=== PATIENT | female | born 1960 | race Caucasian/White ===

== ENCOUNTER 2023-08-11 08:57 | Outpatient (AMB) | payer OTHER, SELFPAY ==
--- NOTE | 2023-08-11 09:00 | A.OFFPC_ITS ---
Vital Signs 08/11/23 09:14 Height 5 ft 3.58 in Weight 100 lb 6 oz BMI 17.5 BP 132/60 Blood Pressure Location Lt brachial Position Sitting Respiration 16 Pulse 117 H Pulse Source Pulse Oximeter Temp 98.3 F Temp Source Oral Intake Visit Reasons: est care Intake Note: New patient visit. Stopped taking Pravastatin due to stomach pain. Pain stopped a week after stopping medication. Interested in trying Ezetimibe. Also wants to talk about taking Meloxicam. Trust And Estates Attorney Required: No Allergies hydrocortisone Allergy (Unknown, Verified 08/11/23 09:03) Headache pravastatin Allergy (Unknown, Verified 08/11/23 09:10) Stomach Upset prednisone Allergy (Unknown, Verified 08/11/23 09:03) bloating Tobacco use date assessed: 08/11/23 Fall risk assessment: 1 Fall in past year Last assessed Fall Risk: 08/11/23 Dental Screening Dental Screen Date: 08/11/23 Did you have a dental visit in the last 12 months?: No Did you have a dental problem in the last 6 months where you did not have access to dental care?: No Was dental information given to patient?: Patient has dentist HPI HPI Comments History of Present Illness Details The patient is a 62 year old female with a past medical history of hypothyroid, headaches, chronic pain presenting for follow up CV: Did not tolerate pravastatin. Was having GI upset with the medication. Would like to try zetia as her sister has done well with the medication Endocrine: On levothyroxine 112mcg daily Chronic pain: neck, low back. stable on oxycodone. Declines colonoscopy. Still has her cologuard at her house [facility] Medical History (Updated 08/11/23 @ 09:49 by Jessica Newell MD) Arthritis Underweight Insomnia Hypothyroidism Headache Surgical History (Updated 08/11/23 @ 09:02 by Lavonne Hu CMA) History of tonsillectomy Family History (Updated 08/11/23 @ 09:19 by Lavonne Hu CMA) Father Diabetes Thyroid disorder Social History (Updated 08/11/23 @ 09:12 by Lavonne Hu CMA) Housing: House Patient Tobacco Use Status: Current everyday Tobacco user Tobacco use type: Cigarette Cigarettes Per Day: 5 Years Smoked: 40 e-Cigarette/Vaping Use: Never Used service: No Current occupational status: retired Cognitive needs: No Hearing needs: No Vision needs: No Questionnaire PHQ-9 Over the last 2 weeks, how often have you been bothered by any of the following problems? 1. Little interest or pleasure in doing things: not at all 2. Feeling down, depressed, or hopeless: not at all 3. Trouble falling or staying asleep, or sleeping too much: not at all 4. Feeling tired or having little energy: not at all 5. Poor appetite or overeating: not at all 6. Feeling bad about yourself - or that you are a failure or have let yourself or your family down: not at all 7. Trouble concentrating on things, such as reading the newspaper or watching television: not at all 8. Moving or speaking so slowly that other people could have noticed. Or the opposite - being so fidgety or restless that you have been moving around a lot more than usual: not at all 9. Thoughts that you would be better off or of hurting yourself in some way: not at all Total score: 0 Depression Screening Interpretation: Negative (neg) Depression Screening Done: Yes 66227 - PHQ-9 Billing: Yes Source: Developed by Drs. Octavio Soto, Sherry Daley, Gonsalo Harkins and colleagues, with an educational kathryn from [employer]. Thrive Questionnaire Date Thrive assessed: 08/11/23 I am a: Patient What is your living situation today?: I have a steady place to live Within the past 12 months, did the food you bought not last and you didn't have the money to get more?: Never true Within the past 12 months, did you worry whether your food would run out before you got money to buy more?: Never true Do you have trouble paying for medicines?: No Do you have trouble getting transportation to medical appointments?: No Do you have trouble paying your heating and electricity bill?: No Do you have trouble taking care of your child, family member or friend?: No Do you have trouble with day-to-day activities such as bathing, preparing meals, shopping, managing finances, etc.?: No Are you currently unemployed and looking for a job?: No Are you interested in more education?: No Please select the resources that you would like help with: None Currently or been in a relationship where the following occur: no concerns reported THRIVE Score: 0 AUDIT C Alcohol Use Questionnaire (AUDIT-C) 1. How often do you have a drink containing alcohol?: Never 3. How often do you have six or more drinks on one occasion?: Never Total Score: 0 MONICA-7 AMB Questionnaire MONICA-7 Date MONICA - 7 assessed: 08/11/23 Feeling nervous, anxious, or on edge: 0 = Not at all Not being able to stop or control worryin = Not at all Worrying too much about different things: 0 = Not at all Trouble relaxin = Not at all Being so restless that it is hard to sit still: 0 = Not at all Becoming easily annoyed or irritable: 0 = Not at all Feeling afraid as if something awful might happen: 0 = Not at all Total MONICA-7 score (0-4 normal; 5-9 mild; 10-14 moderate; 15-21 severe): 0 Source: Developed by Drs. Octavio Soto, Sherry Daley, Gonsalo Harkins and colleagues, with an educational kathryn from [employer]. MONICA-7 Assessment Billing MONICA-7 Assessment Tool: MONICA-7 Assessment 30111 Review of Systems Const Details: ROS CONSTITUTIONAL: Denies weight loss, fever and chills. HEENT: Denies changes in vision and hearing. RESPIRATORY: Denies SOB and cough. CV: Denies palpitations and CP GI: Denies abdominal pain, nausea, vomiting and diarrhea. : Denies dysuria and urinary frequency. MSK: Denies new myalgia and joint pain. SKIN: Denies rash and pruritus. NEUROLOGICAL: Denies headache PSYCHIATRIC: Denies recent changes in mood. Physical exam (Primary Care) Vital Signs: Last Vital Signs Temp 98.3 F 08/11/23 09:14 Pulse 117 H 08/11/23 09:14 Resp 16 08/11/23 09:14 BP 132/60 08/11/23 09:14 PHYSICAL EXAM: GENERAL: Alert and oriented x 3. NAD EYES: EOMI. Anicteric. HENT: Moist mucous membranes. LUNGS: Clear to auscultation bilaterally. CARDIOVASCULAR: Regular rate and rhythm ABDOMEN: Soft, non-tender +bs EXTREMITIES: No edema. Non-tender. SKIN: No rashes or lesions. Warm. NEUROLOGIC: No focal neurological deficits. PSYCHIATRIC: Cooperative. Appropriate mood and affect BMI result Body Mass Index 17.5 Tobacco/Smoking Status: Tobacco use Status Tobacco use date assessed 08/11/23 08/11/23 09:15 Patient Tobacco Use Status Current everyday Tobacco 08/11/23 09:15 Tobacco use type Cigarette 08/11/23 09:15 e-Cigarette/Vaping Use Never Used 08/11/23 09:15 Depression Screening Interpretation: Negative (neg) Currently or been in a relationship where the following occur: no concerns reported Assessment and Plan Assessment & Plan (1) Chronic back pain: Comment: continue current medications. 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 continue PPI Code(s): M15.9 - Polyosteoarthritis, unspecified Qualifiers: Osteoarthritis type: primary Qualified Code(s): M15.9 - Polyosteoarthritis, unspecified (4) Headache: Code(s): R51.9 - Headache, unspecified Qualifiers: Headache chronicity pattern: episodic headache Intractability: not intractable Headache type: unspecified Qualified Code(s): R51.9 - Headache, unspecified (5) Hyperlipidemia: Code(s): E78.5 - Hyperlipidemia, unspecified Qualifiers: Hyperlipidemia type: mixed hyperlipidemia Qualified Code(s): E78.2 - Mixed hyperlipidemia Orders: Orders Basic Metabolic Panel Today E03.8 - Other specified hypothyroidism, E06.3 - Autoimmune thyroiditis, E78.5 - Hyperlipidemia, unspecified, R51.9 - Headache, unspecified TSH reflex Free T4 Today E03.8 - Other specified hypothyroidism, E06.3 - Autoimmune thyroiditis, E78.5 - Hyperlipidemia, unspecified, R51.9 - Headache, unspecified Lipid Panel Today E03.8 - Other specified hypothyroidism, E06.3 - Autoimmune thyroiditis, E78.5 - Hyperlipidemia, unspecified, R51.9 - Headache, unspecified Medications: New ezetimibe 10 mg PO DAILY 90 tabs 3RF meloxicam 7.5 mg PO DAILY 90 days 90 tabs 3RF Coding Level of Care Code Est Pt Level 4 (11068) Complex EM visit Add On G2211 Diagnoses Chronic back pain, unspecified back location, unspecified back pain laterality M54.9; G89.29 Back pain laterality: unspecified Back pain location: back pain in unspecified location 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
[2023-08-11 09:14] VITALS: BP 132/60; PULSE 117; RESP 16; TEMP 36.8; BMI 17.5
== END 2023-08-11 09:40 | disposition home or self-care (01) ==
PROVIDERS: Visit Provider Internal Medicine
DX: M54.9 Dorsalgia, unspecified (principal); G89.29 Other chronic pain; E03.8 Other specified hypothyroidism; E06.3 Autoimmune thyroiditis; M15.9 Polyosteoarthritis, unspecified; R51.9 Headache, unspecified; E78.2 Mixed hyperlipidemia
CPT/HCPCS: 99214; G2211

== ENCOUNTER 2023-08-11 09:43 | Outpatient (REF) | payer OTHER, SELFPAY ==
[2023-08-11 11:55] LABS: Anion Gap 13 (12-20); Blood Urea Nitrogen 16 mg/dL (9-16); Carbon Dioxide 27 mmol/L (22-29); Chloride 104 mmol/L (96-108); Cholesterol 253 mg/dL (<200); Estimated Glomerular Filt Rate > 60; Glucose Random 97 mg/dL (60-115); HDL Cholesterol 92 mg/dL (>40); LDL Cholesterol Calculated 137 mg/dL (<100); Potassium 3.9 mmol/L (3.3-5.1); Sodium 140 mmol/L (135-145); Triglycerides 123 mg/dL (<150)
[2023-08-11 12:14] LABS: TSH reflex Free T4 7.18 uIU/mL (0.32-4.0)
[2023-08-11 13:31] LABS: Free T4 (Free Thyroxine) 1.02 ng/dL (0.71-1.85)
== END 2023-08-11 09:44 | disposition home or self-care (01) ==
LOC: HO.WFDLDS 09:43
PROVIDERS: Visit Provider Internal Medicine
DX: R51.9 Headache, unspecified (principal); E03.8 Other specified hypothyroidism; E06.3 Autoimmune thyroiditis; E78.5 Hyperlipidemia, unspecified
CPT/HCPCS: 36415; 80048; 80061; 84439; 84443

== ENCOUNTER 2023-11-10 08:47 | Outpatient (AMB) | payer OTHER, SELFPAY ==
--- NOTE | 2023-11-10 08:53 | MHC.PC.OV ---
Vital Signs 11/10/23 08:56 Height 5 ft 3 in Weight 105 lb BMI 18.6 BP 161/69 H Blood Pressure Location Rt brachial Position Sitting Respiration 12 Pulse 74 Pulse Source Pulse Oximeter Pulse Oximetry (%) 99 Oxygen Delivery Method Room Air Intake Visit Reasons: 3 month F/U Intake Note: Patient is here to follow up for her thyroid. Pharmaceutical Compounding Supervisor Required: No Allergies hydrocortisone Allergy (Unknown, Verified 11/10/23 09:02) Headache pravastatin Allergy (Unknown, Verified 11/10/23 09:02) Stomach Upset prednisone Allergy (Unknown, Verified 11/10/23 09:02) bloating Tobacco use date assessed: 08/11/23 Fall risk assessment: 1 Fall in past year Last assessed Fall Risk: 11/10/23 Dental Screening Dental Screen Date: 08/11/23 HPI HPI Comments History of Present Illness Details The patient is a 62 year old female with a past medical history of hypothyroid, headaches, chronic pain presenting for follow up CV: Did not tolerate pravastatin. Was having GI upset with the medication. On zetria Endocrine: On levothyroxine 112mcg daily. Last TSH elevated. She would like to go up on the dose Chronic pain: neck, low back. stable on oxycodone. Reports very fatigued. Does not think she is depressed. Just less energy than usual. No LN, night sweats. Declines colonoscopy. ROS see HPI PHYSICAL EXAM: GENERAL: Alert and oriented x 3. NAD EYES: EOMI. Anicteric. HENT: Moist mucous membranes. No scleral icterus. No cervical lymphadenopathy. LUNGS: Clear to auscultation bilaterally. CARDIOVASCULAR: Regular rate and rhythm. No murmur. No JVD. ABDOMEN: Soft, non-tender +bs EXTREMITIES: No edema. Non-tender. SKIN: No rashes or lesions. Warm. NEUROLOGIC: No focal neurological deficits. CN II-XII grossly intact PSYCHIATRIC: Cooperative. Appropriate mood and affect [facility] Medical History (Updated 11/10/23 @ 09:27 by Jessica Newell MD) Arthritis Underweight Insomnia Hypothyroidism Headache Surgical History (Updated 08/11/23 @ 09:02 by Lavonne Hu CMA) History of tonsillectomy Family History (Updated 08/11/23 @ 09:19 by Lavonne Hu CMA) Father Diabetes Thyroid disorder Social History (Updated 08/11/23 @ 09:12 by KENYA Kapoor Housing: House Patient Tobacco Use Status: Current everyday Tobacco user Tobacco use type: Cigarette Cigarettes Per Day: 5 Years Smoked: 40 e-Cigarette/Vaping Use: Never Used service: No Current occupational status: retired Cognitive needs: No Hearing needs: No Vision needs: No Questionnaire Thrive Questionnaire Date Thrive assessed: 08/11/23 MONICA-7 AMB Questionnaire MONICA-7 Date MONICA - 7 assessed: 08/11/23 Source: Developed by Drs. Octavio Soto, Sherry Daley, Gonsalo Harkins and colleagues, with an educational kathryn from [employer]. Physical exam (Primary Care) Vital Signs: Last Vital Signs Pulse 74 11/10/23 08:56 Resp 12 11/10/23 08:56 BP 161/69 H 11/10/23 08:56 Pulse Ox 99 11/10/23 08:56 Oxygen Delivery Method Room Air 11/10/23 08:56 BMI result Body Mass Index 18.6 Tobacco/Smoking Status: Tobacco use Status Tobacco use date assessed 08/11/23 11/10/23 08:53 Patient Tobacco Use Status Current everyday Tobacco 11/10/23 08:53 Tobacco use type Cigarette 11/10/23 08:53 e-Cigarette/Vaping Use Never Used 11/10/23 08:53 Thrive Assessment: Date of Thrive Assessment Date Thrive assessed 08/11/23 11/10/23 08:53 Assessment and Plan Assessment & Plan (1) Osteoarthritis, multiple sites: Code(s): M15.9 - Polyosteoarthritis, unspecified Qualifiers: Osteoarthritis type: primary Qualified Code(s): M15.9 - Polyosteoarthritis, unspecified Plan: stable. continue current medications (2) Chronic back pain: Code(s): M54.9 - Dorsalgia, unspecified; G89.29 - Other chronic pain Qualifiers: Back pain location: back pain in unspecified location Back pain laterality: unspecified Qualified Code(s): M54.9 - Dorsalgia, unspecified; G89.29 - Other chronic pain Plan: Continue opioid meds. 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 Recheck TSH in 8 weeks (4) Hyperlipidemia: Code(s): E78.5 - Hyperlipidemia, unspecified Qualifiers: Hyperlipidemia type: mixed hyperlipidemia Qualified Code(s): E78.2 - Mixed hyperlipidemia Orders: Orders TSH reflex Free T4 Today E03.8 - Other specified hypothyroidism, E06.3 - Autoimmune thyroiditis, E78.2 - Mixed hyperlipidemia Lyme IgG/IgM w/reflex to WB Today E03.8 - Other specified hypothyroidism, E06.3 - Autoimmune thyroiditis, E78.2 - Mixed hyperlipidemia Lipid Panel Today E03.8 - Other specified hypothyroidism, E06.3 - Autoimmune thyroiditis, E78.2 - Mixed hyperlipidemia Comprehensive Met. Panel Today E03.8 - Other specified hypothyroidism, E06.3 - Autoimmune thyroiditis, E78.2 - Mixed hyperlipidemia Vitamin B12 and Folate Today E03.8 - Other specified hypothyroidism, E06.3 - Autoimmune thyroiditis, E78.2 - Mixed hyperlipidemia IRON PROFILE Today E03.8 - Other specified hypothyroidism, E06.3 - Autoimmune thyroiditis, E78.2 - Mixed hyperlipidemia Complete Blood Count Auto Diff Today E03.8 - Other specified hypothyroidism, E06.3 - Autoimmune thyroiditis, E78.2 - Mixed hyperlipidemia Medications: New levothyroxine 125 mcg PO DAILY 90 tabs 3RF bupropion HCl XL (Wellbutrin XL) 150 mg PO QAM 90 tabs 3RF Coding Level of Care Code Est Pt Level 4 (18149) Complex EM visit Add On G2211 Diagnoses Primary osteoarthritis involving multiple joints M15.9 Osteoarthritis type: primary Chronic back pain, unspecified back location, unspecified back pain laterality M54.9; G89.29 Back pain location: back pain in unspecified location Back pain laterality: unspecified 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
[2023-11-10 08:56] VITALS: BP 161/69; PULSE 74; RESP 12; O2SAT 99; BMI 18.6
== END 2023-11-10 09:28 | disposition home or self-care (01) ==
PROVIDERS: PCP Internal Medicine; Visit Provider Internal Medicine
DX: M15.9 Polyosteoarthritis, unspecified (principal); M54.9 Dorsalgia, unspecified; G89.29 Other chronic pain; E03.8 Other specified hypothyroidism; E06.3 Autoimmune thyroiditis; E78.2 Mixed hyperlipidemia
CPT/HCPCS: 99214; G2211

== ENCOUNTER → 2023-12-08 14:41 | Outpatient (AMB) | payer OTHER, SELFPAY ==
--- NOTE | 2023-12-08 14:36 | A.OFFPC_ITS ---
Intake Visit Reasons: phone f/up meds Intake Note: Patient reports she is following up regarding medication. Patient reports she did not start her medication because she looked up the side effects and did not like them. Patient wants to inform the provider herself. Narrative Writer Required: No Accompanied by: Self / Same As Patient Allergies hydrocortisone Allergy (Unknown, Verified 11/10/23 09:02) Headache pravastatin Allergy (Unknown, Verified 11/10/23 09:02) Stomach Upset prednisone Allergy (Unknown, Verified 11/10/23 09:02) bloating Tobacco use date assessed: 08/11/23 Dental Screening Dental Screen Date: 08/11/23 HPI HPI Comments History of Present Illness Details The patient is a 63 year old female with a past medical history of hypothyroid, headaches, chronic pain presenting for follow up. [employer] employed She had c/o ongoing fatigue at her last visit. Does not think she is depressed. Just less energy than usual. No LN, night sweats. She was placed on a trial of wellbutrin but she ended up being very hesitant to start. We did discuss this again today CV: Did not tolerate pravastatin. Was having GI upset with the medication. On zetia Endocrine: On levothyroxine daily Chronic pain: neck, low back. stable on oxycodone. Reports very fatigued. Does not think she is depressed. Just less energy than usual. No LN, night sweats. Declines colonoscopy. ROS see HPI PHYSICAL EXAM: Telehealth [facility] Medical History (Updated 12/11/23 @ 09:12 by Jessica Newell MD) Arthritis Underweight Insomnia Hypothyroidism Headache Surgical History (Updated 08/11/23 @ 09:02 by Lavonne Hu CMA) History of tonsillectomy Family History (Updated 08/11/23 @ 09:19 by Lavonne Hu CMA) Father Diabetes Thyroid disorder Social History (Updated 08/11/23 @ 09:12 by Lavonne Hu CMA) Housing: House Patient Tobacco Use Status: Current everyday Tobacco user Tobacco use type: Cigarette Cigarettes Per Day: 5 Years Smoked: 40 Packs per year/per ci.00 e-Cigarette/Vaping Use: Never Used service: No Current occupational status: retired Cognitive needs: No Hearing needs: No Vision needs: No Questionnaire Thrive Questionnaire Date Thrive assessed: 08/11/23 MONICA-7 AMB Questionnaire MONICA-7 Date MONICA - 7 assessed: 08/11/23 Source: Developed by Drs. Octavio Soto, Sherry Daley, Gonsalo Harkins and colleagues, with an educational kathryn from [employer]. Physical exam (Primary Care) Tobacco/Smoking Status: Tobacco use Status Tobacco use date assessed 08/11/23 12/08/23 14:39 Patient Tobacco Use Status Current everyday Tobacco 12/08/23 14:39 Tobacco use type Cigarette 12/08/23 14:39 e-Cigarette/Vaping Use Never Used 12/08/23 14:39 Thrive Assessment: Date of Thrive Assessment Date Thrive assessed 08/11/23 12/08/23 14:39 Telehealth Telehealth Telehealth Platform: Telephone Location of provider rendering services: practice address Location of patient: address on file Patient Identification confirmed using: Name, : Yes Telehealth method: voice only Patient verbally consented to treatment: Yes Patient verbally consented to billing insurance company: Yes Patient informed of any privacy concerns related to visit: Yes Minutes spent on Phone/Video with Pt.: 32 Assessment and Plan Assessment & Plan (1) Fatigue: Code(s): R53.83 - Other fatigue Qualifiers: Fatigue type: chronic, unspecified Qualified Code(s): R53.82 - Chronic fatigue, unspecified Plan: Discussed trial of wellbutrin for possible depression, fatigue, difficulty concentrating (2) Hypothyroidism: Code(s): E03.9 - Hypothyroidism, unspecified Qualifiers: Hypothyroidism type: due to Fransisco's thyroiditis Qualified Code(s): E03.8 - Other specified hypothyroidism; E06.3 - Autoimmune thyroiditis Plan: Levothyroxine increased at last visit as TSH still elevated. 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
== END ==
LOC: HO.HMCFM 14:41
PROVIDERS: PCP Internal Medicine; Visit Provider Internal Medicine
DX: R53.82 Chronic fatigue, unspecified (principal); E03.8 Other specified hypothyroidism; E06.3 Autoimmune thyroiditis

== ENCOUNTER 2024-02-23 08:28 | Outpatient (REF) | payer OTHER, SELFPAY ==
[2024-02-23 10:55] LABS: MANUAL DIFF FLAG NO
[2024-02-23 11:02] LABS: Basophils Absolute Auto 0.1 X10*3/uL (0.0-0.2); Basophils Percent Auto 0.7 % (0-2); Eosinophils Absolute Auto 0.1 X10*3/uL (0.0-0.4); Eosinophils Percent Auto 2.1 % (0-4); Hematocrit 31.8 % (37.0-47.0); Hemoglobin 9.9 g/dl (12.0-16.0); Imm Gran Abs Auto 0.02 X10*3/uL (0.00-0.03); Imm Gran Pct Auto 0.3 % (0.0-0.4); Lymphocytes Absolute Auto 1.3 X10*3/uL (1.2-4.9); Lymphocytes Percent Auto 19.1 % (20-40); Mean Corpuscular HGB Conc 31.1 g/dl (31.0-35.0); Mean Platelet Volume 9.6 fL (9.4-12.3); Monocytes Absolute Auto 0.6 X10*3/uL (0.1-1.2); Monocytes Percent Auto 8.8 % (2-11); Neutrophils Absolute Auto 4.7 x10*3/uL (2.0-8.3); Platelet Count 346 X10*3/uL (160-400); Red Blood Count 4.13 X10*6/uL (4.20-5.50); Red Cell Distribution Width 17.3 % (11.0-16.0); White Blood Count 6.8 X10*3/uL (4.8-10.8)
[2024-02-23 11:25] LABS: Alanine Aminotransferase 14 U/L (0-31); Albumin Level 4.3 g/dL (3.5-5.0); Alkaline Phosphatase 54 U/L (39-117); Anion Gap 13 (12-20); Aspartate Amino Transferase 25 U/L (5-31); Bilirubin Total 0.2 mg/dL (0.0-1.0); Blood Urea Nitrogen 18 mg/dL (9-16); Calcium 8.9 mg/dL (8.4-10.2); Carbon Dioxide 24 mmol/L (22-29); Chloride 107 mmol/L (96-108); Cholesterol 256 mg/dL (<200); Estimated Glomerular Filt Rate 55; Glucose Random 103 mg/dL (60-115); HDL Cholesterol 87 mg/dL (>40); Iron 12 mcg/dL (30-160); LDL Cholesterol Calculated 144 mg/dL (<100); Percent Iron Saturation 3 % (15-50); Potassium 3.7 mmol/L (3.3-5.1); Sodium 140 mmol/L (135-145); Total Iron Binding Capacity 362 mcg/dL (228-428); Triglycerides 128 mg/dL (<150); Unsaturated Iron Binding 350 ug/dL
[2024-02-23 11:45] LABS: TSH reflex Free T4 16.74 uIU/mL (0.32-4.0)
[2024-02-23 12:01] LABS: Folate 9.5 ng/mL (> or = 4.0); Vitamin B12 354 pg/mL (200-900)
[2024-02-26 17:48] LABS: Lyme Abs Screen <0.90 index
[2024-03-01 06:14] LABS: Vitamin B6 5.2 ng/mL (2.1-21.7)
[2024-03-01 06:29] LABS: Vitamin B1 12 nmol/L (8-30)
== END 2024-02-23 08:29 | disposition home or self-care (01) ==
LOC: HO.WFDLDS 08:28
PROVIDERS: Visit Provider Internal Medicine
DX: E78.2 Mixed hyperlipidemia (principal); E03.8 Other specified hypothyroidism; E06.3 Autoimmune thyroiditis; R53.83 Other fatigue
CPT/HCPCS: 36415; 80053; 80061; 82607; 82746; 83540; 84207; 84425; 84439; 84443; 85025; 86617; 86618

== ENCOUNTER 2024-03-04 11:25 | Outpatient (AMB) | payer OTHER, SELFPAY ==
--- NOTE | 2024-03-04 11:50 | MHC.PC.OV ---
Vital Signs 03/04/24 11:56 Height 5 ft 3 in Weight 99 lb BMI 17.5 BP 138/70 Blood Pressure Location Lt brachial Position Sitting Pulse 98 Pulse Source Pulse Oximeter Pulse Oximetry (%) 96 Oxygen Delivery Method Room Air Intake Visit Reasons: 3 months FU Intake Note: Three months follow up. Painful rash on back that started about three weeks ago. Allergies hydrocortisone Allergy (Unknown, Verified 03/04/24 11:52) Headache pravastatin Allergy (Unknown, Verified 03/04/24 11:52) Stomach Upset prednisone Allergy (Unknown, Verified 03/04/24 11:52) bloating Tobacco use date assessed: 08/11/23 Dental Screening Dental Screen Date: 08/11/23 HPI HPI Comments History of Present Illness Details The patient is a 63 year old female with a past medical history of hypothyroid, headaches, chronic pain presenting for follow up. She had c/o ongoing fatigue at her last visit. Does not think she is depressed. Just less energy than usual. No LN, night sweats. She is anemic and now is agreeable as such to endoscopy-GI referral placed. She has had itchy somewhat painful rash across the back. Started upper back spread to lower and some b/l shoulder involvement. Using otc calamine CV: Did not tolerate pravastatin. Was having GI upset with the medication. On zetia Endocrine: On levothyroxine daily Chronic pain: neck, low back. stable on oxycodone. Reports very fatigued. Does not think she is depressed. Just less energy than usual. No LN, night sweats. Declines colonoscopy. ROS see HPI PHYSICAL EXAM: GENERAL: Alert and oriented x 3. NAD EYES: EOMI. Anicteric. HENT: Moist mucous membranes. No scleral icterus. No cervical lymphadenopathy. LUNGS: Clear to auscultation bilaterally. CARDIOVASCULAR: Regular rate and rhythm. No murmur. No JVD. ABDOMEN: Soft, non-tender +bs EXTREMITIES: No edema. Non-tender. SKIN: Scattered small scabs on the back NEUROLOGIC: No focal neurological deficits. CN II-XII grossly intact PSYCHIATRIC: Cooperative. Appropriate mood and affect [facility] Medical History Arthritis Underweight Insomnia Hypothyroidism Headache Surgical History History of tonsillectomy Family History Father Diabetes Thyroid disorder Social History Housing: House Alcohol intake: never Patient Tobacco Use Status: Current everyday Tobacco user Tobacco use type: Cigarette Cigarettes Per Day: 5 Years Smoked: 40 e-Cigarette/Vaping Use: Never Used service: No Current occupational status: retired Cognitive needs: No Hearing needs: No Vision needs: No Questionnaire PHQ-9 Over the last 2 weeks, how often have you been bothered by any of the following problems? 1. Little interest or pleasure in doing things: not at all 2. Feeling down, depressed, or hopeless: not at all 3. Trouble falling or staying asleep, or sleeping too much: not at all 4. Feeling tired or having little energy: not at all 5. Poor appetite or overeating: not at all 6. Feeling bad about yourself - or that you are a failure or have let yourself or your family down: not at all 7. Trouble concentrating on things, such as reading the newspaper or watching television: not at all 8. Moving or speaking so slowly that other people could have noticed. Or the opposite - being so fidgety or restless that you have been moving around a lot more than usual: not at all 9. Thoughts that you would be better off or of hurting yourself in some way: not at all Total score: 0 Depression Screening Interpretation: Negative Depression Screening Done: Yes [id number] - PHQ-9 Billing: Yes Source: Developed by Drs. Octavio Soto, Sherry Daley, Gonsalo Harkins and colleagues, with an educational kathryn from [employer]. Thrive Questionnaire Date Thrive assessed: 02/26/24 I am a: Patient What is your living situation today?: I have a steady place to live Within the past 12 months, did the food you bought not last and you didn't have the money to get more?: Never true Within the past 12 months, did you worry whether your food would run out before you got money to buy more?: Never true Do you have trouble paying for medicines?: No Do you have trouble getting transportation to medical appointments?: No Do you have trouble paying your heating and electricity bill?: No Do you have trouble taking care of your child, family member or friend?: No Do you have trouble with day-to-day activities such as bathing, preparing meals, shopping, managing finances, etc.?: No Are you currently unemployed and looking for a job?: No Are you interested in more education?: No Please select the resources that you would like help with: None Currently or been in a relationship where the following occur: No concerns reported THRIVE Score: 0 AUDIT C Alcohol Use Questionnaire (AUDIT-C) 1. How often do you have a drink containing alcohol?: Never Total Score: 0 MONICA-7 AMB Questionnaire MONICA-7 Date MONICA - 7 assessed: 08/11/23 Feeling nervous, anxious, or on edge: 0 = Not at all Not being able to stop or control worryin = Not at all Worrying too much about different things: 0 = Not at all Trouble relaxin = Not at all Being so restless that it is hard to sit still: 0 = Not at all Becoming easily annoyed or irritable: 0 = Not at all Feeling afraid as if something awful might happen: 0 = Not at all Total MONICA-7 score (0-4 normal; 5-9 mild; 10-14 moderate; 15-21 severe): 0 Source: Developed by Drs. Octavio Soto, Sherry Daley, Gonsalo Harkins and colleagues, with an educational kathryn from [employer]. Physical exam (Primary Care) Vital Signs: Last Vital Signs Pulse 98 03/04/24 11:56 BP 138/70 03/04/24 11:56 Pulse Ox 96 03/04/24 11:56 Oxygen Delivery Method Room Air 03/04/24 11:56 BMI result Body Mass Index 17.5 Tobacco/Smoking Status: Tobacco use Status Tobacco use date assessed 08/11/23 03/04/24 11:59 Patient Tobacco Use Status Current everyday Tobacco 03/04/24 11:59 Tobacco use type Cigarette 03/04/24 11:59 e-Cigarette/Vaping Use Never Used 03/04/24 11:59 PHQ-9: PHQ-9 Score PHQ-9: Total score 0 03/10/24 16:36 Depression Screening Interpretation: Negative Thrive Assessment: Date of Thrive Assessment Date Thrive assessed 02/26/24 03/04/24 11:59 Currently or been in a relationship where the following occur: No concerns reported Coding Level of Care Code Est Pt Level 4 (20166) Complex EM visit Add On G2211 Diagnoses Rash R21 Chronic back pain, unspecified back location, unspecified back pain laterality M54.9; G89.29 Back pain laterality: unspecified Back pain location: back pain in unspecified location Additional Codes PHQ-9 - 94077 - PHQ-9 Billing: Yes ([id number]) Assessment & Plan Assessment & Plan (1) Rash: Code(s): R21 - Rash and other nonspecific skin eruption Category: Medical Plan: Discussed most c/w pityriasis which has no particular treatment. Prednisone kenalog ordered. Referral to dermatology placedstable (2) Chronic back pain: Code(s): M54.9 - Dorsalgia, unspecified; G89.29 - Other chronic pain Category: Medical Qualifiers: Back pain laterality: unspecified Back pain location: back pain in unspecified location Qualified Code(s): M54.9 - Dorsalgia, unspecified; G89.29 - Other chronic pain Plan: stable on current medication Orders: Referrals Dermatology Referral R21 - Rash and other nonspecific skin eruption Gastroenterology Referral D64.9 - Anemia, unspecified Medications: New prednisone Take 3 tab oral once daily for 5 days then take 2 tab oral once daily for 5 days then take 1 tab oral once daily for 5 days 10 mg PO DAILY 30 tabs 0RF triamcinolone acetonide 0.1% 1 appl topical DAILY 80 grams 3RF levothyroxine 137 mcg PO DAILY 90 tabs 3RF Changed From oxycodone 5 mg PO Q8H 28 days 84 tabs 0RF To oxycodone patient may pay out of pocket Qty change partial fill upon patient request 5 mg PO QID 112 tabs 0RF 28 days Discontinued levothyroxine Discontinued Reason: Doctor's Order 125 mcg PO DAILY 90 tabs 3RF
[2024-03-04 11:56] VITALS: BP 138/70; PULSE 98; O2SAT 96; BMI 17.5
== END 2024-03-04 12:19 | disposition home or self-care (01) ==
PROVIDERS: PCP Internal Medicine; Visit Provider Internal Medicine
DX: R21 Rash and other nonspecific skin eruption (principal); M54.9 Dorsalgia, unspecified; G89.29 Other chronic pain

== ENCOUNTER 2024-04-02 15:29 | Outpatient (AMB) | payer OTHER, SELFPAY ==
--- NOTE | 2024-04-02 16:26 | A.OFFPC_ITS ---
Intake Visit Reasons: blisters on tongue Allergies hydrocortisone Allergy (Unknown, Verified 03/04/24 11:52) Headache pravastatin Allergy (Unknown, Verified 03/04/24 11:52) Stomach Upset prednisone Allergy (Unknown, Verified 03/04/24 11:52) bloating Tobacco use date assessed: 08/11/23 Dental Screening Dental Screen Date: 08/11/23 HPI HPI Comments History of Present Illness Details The patient is a 63 year old female with a past medical history of hypothyroid, headaches, chronic pain presenting for follow up. She had c/o ongoing fatigue at her last visit. Does not think she is depressed. Just less energy than usual. No LN, night sweats. She is anemic and now is agreeable as such to endoscopy-GI referral placed. Now has some hesitation. Wants cologuard sent to her house but still wants to keep GI referral At last visit-She has had itchy somewhat painful rash across the back. Started upper back spread to lower and some b/l shoulder involvement. Using otc calamine. She reports interval lessening of body rash but developed tongue/oral blisters. Mom had similar-treated with valtrex. She would like to try this. CV: Did not tolerate pravastatin. Was having GI upset with the medication. On zetia Endocrine: On levothyroxine daily Chronic pain: neck, low back. stable on oxycodone. ROS see HPI PHYSICAL EXAM: Telehealth [facility] Medical History Arthritis Underweight Insomnia Hypothyroidism Headache Surgical History History of tonsillectomy Family History Father Diabetes Thyroid disorder Social History Housing: House Alcohol intake: never Patient Tobacco Use Status: Current everyday Tobacco user Tobacco use type: Cigarette Cigarettes Per Day: 5 Years Smoked: 40 Packs per year/per ci.00 e-Cigarette/Vaping Use: Never Used service: No Current occupational status: retired Cognitive needs: No Hearing needs: No Vision needs: No Questionnaire Thrive Questionnaire Date Thrive assessed: 02/26/24 MONICA-7 AMB Questionnaire MONICA-7 Date MONICA - 7 assessed: 08/11/23 Source: Developed by DrsAdelina Soto, Sherry Daley, Gonsalo Harkins and colleagues, with an educational kathryn from [employer]. Physical exam (Primary Care) Tobacco/Smoking Status: Tobacco use Status Tobacco use date assessed 08/11/23 04/02/24 16:29 Patient Tobacco Use Status Current everyday Tobacco 04/02/24 16:29 Tobacco use type Cigarette 04/02/24 16:29 e-Cigarette/Vaping Use Never Used 04/02/24 16:29 Thrive Assessment: Date of Thrive Assessment Date Thrive assessed 02/26/24 04/02/24 16:29 Telehealth Telehealth Telehealth Platform: [facility] Assessment Centres Location of provider rendering services: practice address Location of patient: address on file Patient Identification confirmed using: Name, : Yes Telehealth method: voice only Patient verbally consented to treatment: Yes Patient verbally consented to billing insurance company: Yes Patient informed of any privacy concerns related to visit: Yes Minutes spent on Phone/Video with Pt.: 32 Coding Level of Care Code Est Pt Level 4 (69512) Diagnoses Rash R21 Anemia, unspecified type D64.9 Anemia type: unspecified type Chronic fatigue R53.82 Fatigue type: chronic, unspecified Chronic back pain, unspecified back location, unspecified back pain laterality M54.9; G89.29 Back pain location: back pain in unspecified location Back pain laterality: unspecified Assessment & Plan Assessment & Plan (1) Rash: Code(s): R21 - Rash and other nonspecific skin eruption Category: Medical Plan: will trial valtrex for tongue/oral lesions. Patient unable to employ camera to get video appt. Done throught [facility] with voice only. she has a dermatology referral pending (2) Anemia: Code(s): D64.9 - Anemia, unspecified Category: Medical Qualifiers: Anemia type: unspecified type Qualified Code(s): D64.9 - Anemia, unspecified Plan: cologuard ordered, but discussed that endoscopy gold standard. (3) Fatigue: Code(s): R53.83 - Other fatigue Category: Medical Qualifiers: Fatigue type: chronic, unspecified Qualified Code(s): R53.82 - Chronic fatigue, unspecified Plan: stable see above (4) Chronic back pain: Code(s): M54.9 - Dorsalgia, unspecified; G89.29 - Other chronic pain Category: Medical Qualifiers: Back pain location: back pain in unspecified location Back pain laterality: unspecified Qualified Code(s): M54.9 - Dorsalgia, unspecified; G89.29 - Other chronic pain Plan: stable on chronic opioid therapy Orders: Referrals Cologuard Test Z12.11 - Encounter for screening for malignant neoplasm of colon, Z12.12 - Encounter for screening for malignant neoplasm of rectum Medications: New valacyclovir (Valtrex) 1,000 mg PO DAILY 90 tabs 3RF Refilled oxycodone patient may pay out of pocket Qty change partial fill upon patient request 5 mg PO QID 112 tabs 0RF 28 days
== END 2024-04-02 17:05 | disposition home or self-care (01) ==
LOC: HO.HMCFM 15:29
PROVIDERS: PCP Internal Medicine; Visit Provider Internal Medicine
DX: R21 Rash and other nonspecific skin eruption (principal); D64.9 Anemia, unspecified; R53.82 Chronic fatigue, unspecified; M54.9 Dorsalgia, unspecified; G89.29 Other chronic pain